=== PATIENT | male | born 1980 | race Caucasian/White ===

== ENCOUNTER 2018-04-06 15:57 | Outpatient (CLI) | payer OTHER, SELFPAY ==
[2018-04-06 16:47] LABS: Kit/Specimen SENT
== END 2018-04-06 16:17 ==
DX: R69 Illness, unspecified (principal)

== ENCOUNTER 2019-02-22 19:56 | Emergency (ER) | payer OTHER, SELFPAY ==
[2019-02-22 19:59] VITALS: BP 146/82; PULSE 75; RESP 18; TEMP 36.9; O2SAT 96
--- NOTE | 2019-02-22 20:29 | ED.GENADUL_ITS ---
Discharge Plan Disposition Patient Disposition: HOME Condition: Good Discharge Details Chief Complaint: Laceration Clinical Impression: Laceration of right little finger ED Provider: Morteza Padilla Discharge Instructions Instructions: Care For Your Stitches (ED), Finger Laceration (ED) Additional Instructions: Please leave the dressing on for 24 hours, then you may remove and begin cleaning the wound at least twice a day with soap and water. Continue to apply antibiotic ointment. Do not directly soak the area. Watch for any signs of infection and return if any increasing redness, swelling, pain, drainage. Please return in 7 to 10 days to have them removed. If you notice any worsening of your symptoms, or any new symptoms such as vomiting, diarrhea, fever, chills, shortness of breath, chest pain, numbness, weakness, or fainting , please return immediately to the emergency department for reevaluation. Please follow up with your primary care provider as soon as possible for reassessment and reevaluation. As always, it was a pleasure participating in your medical care today. Medical Decision Making This is a pleasant 38-year-old male who presents for laceration of his right dominant hand on the fifth finger on the dorsal aspect. 3 cm laceration. It occurred while cleaning knives after dinner. Exam demonstrates no evidence of neurovascular compromise or tendon disruption. Normal strength normal sensation normal capillary refill are all present. The finger was cleaned, irrigated, anesthetized. Patient tolerated procedure well. 4 simple interrupted sutures placed in the right dorsal aspect of the fifth digit on the dominant hand, 5-0 Ethilon was used. Small amount of Dermabond was then placed over the knots to prevent not unraveling. Discussed red flags which to return. Tetanus updated here. I have extensively reviewed the treatment plan and discharge instructions with the patient and their family. I have addressed all patient concerns at this time. The patient and family was made aware of what symptoms to monitor for that would warrant a return to the emergency department. Discussed the plan with the patient and family, they demonstrate verbal understanding and agreement with our assessment and plan at this time. HPI General Date/Time Provider Initiated Documentation: 02/22/19 20:05 . HPI Narrative: This is an remarkably pleasant 38-year-old male with no significant past medical history whose tetanus is not up-to-date who is right-hand dominant who presents today for laceration to the dorsal aspect of his right fifth digit. Patient was cleaning a knife 1 hour ago while doing dishes and it slipped and cut that area. Bleeding was controlled with pressure. No associated numbness or tingling. No other complaints at this time. No other modifying factors. Knife was otherwise clean. Patient denies any weakness. General Stated Complaint: Laceration SEGUNDO: 4 Review of Systems All systems reviewed & are unremarkable except as noted in HPI and below PFSH Social History Smoking/Tobacco Use Status: Never Alcohol Intake: current Alcohol Intake frequency: a few times a week Drug use: Never Substance use type: does not use Do you feel safe at home: Yes Do you feel safe in your relationship?: Yes Exam Narrative Exam Narrative: 1.Const: Well-nourished, Well-developed, appearing stated age 2.Eyes: PERRL, no conjunctival injection, and symmetrical lids. 3.ENT: Atraumatic external nose and ears. Moist MM. Neck: Symmetric, trachea midline, No thyromegaly. 4.CVS: +S1/S2, No murmurs or gallops. Peripheral pulses 2+ and equal in all extremities. Brisk capillary refill in all extremities. 5.RESP: Unlabored respiratory effort. Clear to auscultation bilaterally. No wheezes rales or rhonchi 6.GI: Soft, Nontender/Nondistended, No hepatosplenomegaly. No guarding or rebound. 7.MSK: Normocephalic/Atraumatic, Extremities w/o deformity or ttp No cyanosis or clubbing, Normal movement of all extremities. Right hand: Symmetrically palpable radial and ulnar pulses. Capillary refill less than 2 seconds to all digits. Intact sensation to light touch of the radial, median and ulnar nerves demonstrated by testing in the dorsal web space of the thumb, the distal palmar aspect of the index finger, and the lateral surface of the fifth finger. 2 point discrimination intact to 5mm (up to 6mm can be normal in digits 3-5) of discrimination in the affected digit. Intact motor function of the radial, median and ulnar nerves demonstrated by strength of extension of the isolated distal joint of the index finger, hand speedboat operator, and spreading of the 2nd through 5th digits. Fifth digit demonstrates notably normal flexion and extension with no evidence of tendon damage. Intact recurrent median nerve as demonstrated by ability to move thumb fully through opposition, abduction and flexion. No snuffbox tenderness. Fifth finger on the right hand demonstrates a linear laceration that is present at 45 degree angle on the dorsal aspect between the PIP and DIP joint. It is roughly 3 cm in length. Spreading of skin demonstrates no evidence of tendon damage, small amount of bloody oozing. Good capillary refill is present distally. Normal strength and movement. 8.Skin: Warm, Dry. No rashes. 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 Sensation grossly intact, no focal neurologic deficits. 10.Psych: (AAO) x3. Appropriate mood and affect Course Vital Signs Vital signs: Vital Signs Temperature 36.9 C 02/22/19 19:59 Pulse 75 02/22/19 19:59 Respiratory Rate 18 02/22/19 19:59 Blood Pressure 146/82 H 02/22/19 19:59 Pulse Oximetry 96 02/22/19 19:59 Temperature 36.9 C 02/22/19 19:59 Temperature Source Skin 02/22/19 19:59 Pulse 75 02/22/19 19:59 Respiratory Rate 18 02/22/19 19:59 Respiratory Effort Non-Labored 02/22/19 20:01 Blood Pressure 146/82 H 02/22/19 19:59 Blood Pressure Position Sitting 02/22/19 19:59 Pulse Oximetry 96 02/22/19 19:59 Oxygen Delivery Method Room Air 02/22/19 19:59 Oxygen Flow Rate 0 02/22/19 19:59 Pain Level 3 02/22/19 19:59 Procedures Laceration Laceration 1: Site: hand (Fifth digit on right hand) Side (If applicable): right Size (cm): 3 Description: linear Depth: simple, single layer Local Anesthetic: Lidocaine 1% Amount of anesthesia used (mL): 4 Pre-repair: wound explored, irrigated extensively and deep structures i ntact Skin layer closed with: nylon Size (cm): 5-0 Number of sutures: 4 Technique: simple, interrupted
== END 2019-02-22 20:40 | disposition home or self-care (01) ==
LOC: ER 20:42
PROVIDERS: Emergency Provider Student in an Organized Health Care Education/Training Program
DX: S61.216A Laceration without foreign body of right little finger without damage to nail, initial encounter (principal); W26.0XXA Contact with knife, initial encounter; Y93.G1 Activity, food preparation and clean up
CPT/HCPCS: 12002; 90471

== ENCOUNTER 2019-03-03 10:16 | Emergency (ER) | payer OTHER, SELFPAY ==
[2019-03-03 10:21] VITALS: BP 179/87; PULSE 76; RESP 18; TEMP 36.7; O2SAT 97
--- NOTE | 2019-03-03 10:27 | ED.GENADUL_ITS ---
Discharge Plan Disposition Patient Disposition: HOME Condition: Stable Discharge Details Chief Complaint: SutureRem Clinical Impression: Encounter for removal of sutures Primary Care Provider: None,None ED Provider: Joce Rajput Home Meds and New Rx's Prescriptions: No Action No Known Home Meds RF: 0 Discharge Instructions Additional Instructions: Continue daily soap and water cleanse, pat dry, replace Band-Aid. May resume normal routine and activities. Return for any acute concerns. Medical Decision Making 38-year-old male presents on day 8 following right fifth digit laceration repair with 4 interrupted nylon sutures. They were removed without difficulty. The wound is well-appearing. He was instructed on home care. He is stable for discharge. HPI General Mode of arrival: ambulatory . Date/Time Provider Initiated Documentation: 03/03/19 10:16 . Limitations to Documentation: no limitations . Information obtained by: patient . History of Present Illness 38 year old M presents to the emergency department with the chief complaint of Right fifth digit encounter for suture removal no other complaints, Related Data Home Medications Medication Instructions Recorded Confirmed Unknown [No Known Home Meds] 03/03/19 03/03/19 Allergies Allergy/AdvReac Type Severity Reaction Status Date / Time No Known Allergies Allergy Unverified 03/03/19 10:27 General Stated Complaint: SutureRem SEGUNDO: 4 PFSH Social History Smoking/Tobacco Use Status: Never Alcohol Intake: current Alcohol Intake frequency: a few times a week Drug use: Never Substance use type: does not use Do you feel safe at home: Yes Do you feel safe in your relationship?: Yes Exam Narrative Exam Narrative: The right fifth digit on the dorsal surface has distal healing laceration with 4 sutures that were removed, no dehiscence, no erythema or discharge. Course Vital Signs Vital signs: Vital Signs Temperature 36.7 C 03/03/19 10:21 Pulse 76 03/03/19 10:21 Respiratory Rate 18 03/03/19 10:21 Blood Pressure 179/87 H 03/03/19 10:21 Pulse Oximetry 97 03/03/19 10:21 Temperature 36.7 C 03/03/19 10:21 Temperature Source Skin 03/03/19 10:21 Pulse 76 03/03/19 10:21 Respiratory Rate 18 03/03/19 10:21 Respiratory Effort Non-Labored 03/03/19 10:22 Blood Pressure 179/87 H 03/03/19 10:21 Blood Pressure Position Sitting 03/03/19 10:21 Pulse Oximetry 97 03/03/19 10:21 Oxygen Delivery Method Room Air 03/03/19 10:21 Oxygen Flow Rate 0 03/03/19 10:21
== END 2019-03-03 10:33 | disposition home or self-care (01) ==
PROVIDERS: Emergency Provider Emergency Medicine
DX: S61.216D Laceration without foreign body of right little finger without damage to nail, subsequent encounter (principal); W26.0XXD Contact with knife, subsequent encounter; Z48.02 Encounter for removal of sutures

== ENCOUNTER 2020-07-12 02:17 | Outpatient (CLI) | payer OTHER, SELFPAY ==
[2020-07-12 08:58] LABS: HCT 44.8 % (40.0-50.0); HGB 15.3 g/dL (13.5-17.5); MCH 30.2 pg (27.0-33.0); MCHC 34.2 % (32.0-36.0); MCV 88.4 fL (80-95); MPV 9.5 fL (8.0-11.0); Platelet Count 247 10^3/uL (130-400); RBC 5.07 10^6/uL (4.36-5.78); RDW 11.6 % (11.8-14.1); RDW-SD 36.9 fL; WBC 7.52 10^3/uL (4.4-10.8)
[2020-07-12 09:42] LABS: ALT 53 U/L (16-63); AST 21 U/L (15-37); Alkaline Phosphatase 85 U/L (46-116); Anion Gap 10.1 mmol/L (3-11); BUN 13 mg/dL (7-18); Bilirubin, Total 0.8 mg/dL (0.2-1.0); CO2 26.9 mmol/L (21.0-32.0); CREATININE 0.7 mg/dL (0.70-1.30); Calculated LDL 140 mg/dL (<100); Chloride 104 mmol/L (98-107); Cholesterol 226 mg/dL (<200); Glucose 108 mg/dL (74-106); HDL Cholesterol 49 mg/dL (40-60); Potassium 4.7 mmol/L (3.5-5.1); Sodium 141 mmol/L (136-145); TSH (W/Ref FT4) 0.88 uIU/mL (0.36-3.74); Total Protein 7.5 g/dL (6.4-8.2); Triglyceride 187 mg/dL (<150)
== END 2020-07-12 02:18 | disposition home or self-care (01) ==
LOC: LBO 02:17
PROVIDERS: PCP Student in an Organized Health Care Education/Training Program; Visit Provider Student in an Organized Health Care Education/Training Program
DX: I10 Essential (primary) hypertension (principal); E86.0 Dehydration; Z13.220 Encounter for screening for lipoid disorders; R53.83 Other fatigue; Z80.6 Family history of leukemia; Z82.49 Family history of ischemic heart disease and other diseases of the circulatory system
CPT/HCPCS: 36415; 80053; 80061; 85027; 84443

== ENCOUNTER 2023-02-21 00:22 | Outpatient (CLI) | payer OTHER, SELFPAY | END 2023-02-21 00:23 | disposition home or self-care (01) | LOC: DI.KIM 00:25 | PROVIDERS: PCP Student in an Organized Health Care Education/Training Program; Visit Provider Student in an Organized Health Care Education/Training Program | DX: Z82.49 Family history of ischemic heart disease and other diseases of the circulatory system (principal); I10 Essential (primary) hypertension | CPT/HCPCS: 93010 ==

== ENCOUNTER 2023-03-11 04:01 | Outpatient (CLI) | payer OTHER, SELFPAY ==
[2023-03-11 07:41] LABS: Abs Immature Grans 0.02 10^3/uL (0.0-0.06); Absolute Basophil Count 0.07 10^3/uL (0.0-0.2); Absolute Eosinophil Count 0.17 10^3/uL (0.0-0.7); Absolute Lymphocyte Count 2.06 10^3/uL (1.2-3.4); Eosinophils % 2.4; HCT 45.1 % (40.0-50.0); HGB 16.2 g/dL (13.5-17.5); Immature Grans % 0.3; Lymphocytes % 29.3; MCH 31.3 pg (27.0-33.0); MCHC 35.9 % (32.0-36.0); MCV 87 fL (80-95); MPV 9.2 fL (8.0-11.0); Monocytes % 7.1; Neutrophils % 59.9; Platelet Count 239 10^3/uL (130-400); RBC 5.18 10^6/uL (4.36-5.78); RDW 11.5 % (11.8-14.1); RDW-SD 36.8 fL; WBC 7.02 10^3/uL (4.4-10.8)
[2023-03-11 07:57] LABS: ALT 49 U/L (16-63); AST 19 U/L (15-37); Albumin 3.6 g/dL (3.4-5.0); Alkaline Phosphatase 93 U/L (46-116); Anion Gap 8.2 mmol/L (3-11); BUN 12 mg/dL (7-18); Bilirubin, Total 0.8 mg/dL (0.2-1.0); CO2 26.8 mmol/L (21.0-32.0); CREATININE 0.9 mg/dL (0.70-1.30); Calcium 8.8 mg/dL (8.5-10.1); Calculated LDL 146 mg/dL (<100); Chloride 104 mmol/L (98-107); Cholesterol 217 mg/dL (<200); Estimated GFR 108.68 (mL/min/1.73m2); Glucose 112 mg/dL (74-106); HDL Cholesterol 51 mg/dL (40-60); Potassium 3.8 mmol/L (3.5-5.1); Sodium 139 mmol/L (136-145); Total Protein 7.5 g/dL (6.4-8.2); Triglyceride 102 mg/dL (<150)
[2023-03-11 08:18] LABS: Vitamin D 25 Total 7.9 ng/mL (30-100)
== END 2023-03-11 04:02 | disposition home or self-care (01) ==
LOC: LBO 04:01
PROVIDERS: PCP Student in an Organized Health Care Education/Training Program; Referring Provider Student in an Organized Health Care Education/Training Program; Visit Provider Student in an Organized Health Care Education/Training Program
DX: K52.89 Other specified noninfective gastroenteritis and colitis (principal); K62.5 Hemorrhage of anus and rectum; R03.0 Elevated blood-pressure reading, without diagnosis of hypertension; Z52.001 Unspecified donor, stem cells; Z87.19 Personal history of other diseases of the digestive system; Z80.6 Family history of leukemia; Z13.220 Encounter for screening for lipoid disorders; Z82.49 Family history of ischemic heart disease and other diseases of the circulatory system
CPT/HCPCS: 36415; 80053; 80061; 82306; 85025

== ENCOUNTER 2023-04-01 15:57 | Outpatient (CLI) | payer OTHER, SELFPAY ==
--- NOTE | 2023-04-01 15:45 | RT.EKG_ITS ---
APPROVED REPORT Exam: Resting ECG Reason for Exam: Uncontrolled blood pressure Patient Location: O HR:65 bpm ECG Measurements Heart Rate 65 AXIS NE 164 P 9 QRSd 91 QRS 15 QT 370 T 198 QTc 385 Conclusion Sinus rhythm...normal P axis, V-rate 50- 99 Left ventricular hypertrophy with repolarization abnormality
== END 2023-04-01 15:58 | disposition home or self-care (01) ==
LOC: DI.KIM 16:03
PROVIDERS: PCP Student in an Organized Health Care Education/Training Program; Visit Provider Student in an Organized Health Care Education/Training Program
DX: Z87.19 Personal history of other diseases of the digestive system; I10 Essential (primary) hypertension
CPT/HCPCS: 93010

== ENCOUNTER → 2023-04-02 01:23 | Outpatient (CLI) | payer OTHER, SELFPAY ==
--- NOTE | 2023-04-02 14:31 | DI.US_ITS ---
APPROVED REPORT EXAM: Comprehensive 2D, Doppler, and color-flow Echocardiogram Patient Location: Out-Patient Truck Dock Material Mover: Maricarmen Waggoner RDCS (AE) Indications: Evaluate EF, Uncontrolled HTN Other Information Study Quality: Fair. Technically limited study due to body habitus. Conclusion Moderate concentric left ventricular hypertrophy. Ejection fraction is percent. Wall motion is norm al Normal right ventricular size and systolic function Both atria are normal in size There is no structural or hemodynamically significant valvular disease Wall motion Left Ventricle The left ventricle is normal size. The left ventricular systolic function is normal. The left ventric ular ejection fraction is within the normal range. Moderate concentric left ventricular hypertrophy. There is normal LV segmental wall motion. There is no ventricular septal defect visualized. LVEF is 6 0%. Right Ventricle The right ventricle is normal size. The right ventricular systolic function is normal. Atria The left atrium size is normal. The right atrium size is normal. The interatrial septum is intact wit h no evidence for an atrial septal defect. Aortic Valve The aortic valve is normal in structure. Aortic valve is trileaflet. There is no aortic valvular sten osis. No aortic regurgitation is present. Mitral Valve The mitral valve is normal in structure. No evidence of mitral valve stenosis. Trace mitral regurgita tion. Tricuspid Valve The tricuspid valve is normal in structure. There is no tricuspid valve stenosis. Trace tricuspid reg urgitation. Unable to assess PA pressure. Pulmonic Valve The pulmonary valve is normal in structure. There is no pulmonic valvular stenosis. There is no pulmo alfredo valvular regurgitation. Great Vessels The aortic root is normal in size. The ascending aorta is normal in size. Aortic arch is normal in ca liber. IVC is normal in size and collapses >50% with inspiration. Pericardium There is no pericardial effusion. 2D Dimensions IVSD d PLAX 1.53 cm M: 0.6-1.2 Ao Root d 3.05 cm M: 3.1 - 3.7 LVPW d PLAX 1.50 cm M: 0.6 - 1.2 Ao Asc Diam d 2.81 cm M: 2.6 - 3.4 LVID d PLAX 4.62 cm M: 4.2 - 5.8 LVDs 3.35 cm M: 2.5 - 4.0 LV EF Teichholz 53.4 % FS 27.45 % LV EDV (Teich) 98.3 mL LV ESV (Teich) 45.8 mL M-Mode TAPSE 2.04 cm (M/F) >1.7 Auto EF LV EDV A4C 72.0 mL LV EDV A2C 108.1 mL LV EDV BP 88.3 mL LV ESV A4C 37.4 mL LV ESV A2C 55.6 mL LV ESV BP 46.4 mL LVEF(%) A4C 48.0 % LVEF(%) A2C 48.6 % LVEF(%) BP 47.4 % LV SV A4C 34.5 ml LV SV A2C 52.5 ml LV SV BP 41.9 ml LV CO A4C 3.0 L/min LV CO A2C 4.4 L/min LV CO BP 3.7 L/min HR A4C 87.38 BPM HR A2C 84.32 BPM LV EDV Index (BP) LV Strain Long Pk Overal Avg (s) 13.53 LA Volume LA Length A4C 4.1 cm LA Length A2C 4.4 cm LA Area A4C s 10.34 cm2 LA Area A2C s 13.77 cm2 LA Vol A4C A-L 22.36 mL LA Vol A2C A-L 37.00 mL LA Vol Biplane A-L 29.8 mL LA Vol/BSA A4C A-L LA Vol/BSA A2C A-L LA Vol/BSA BP A-L 14.5 mL/m2 LA Vol A4C MOD 21.0 mL LA Vol A2C MOD 34.5 mL LA Vol BP MOD 27.7 mL RA Volume RA Area A4C 8.8 cm2 RA ESV A4C (A-L) 16.7mL RA Vol/BSA A4C A-L RA Length A4C 3.9 cm RA ESV A4C (MOD) 15.4mL LV Diastology MV E' medial 0.092 (>0.07 m/s) MV E Vmax 0.57 (0.4-1.3 m/s) MV E/E' MED 6.15 (<14) MV A Vmax 0.60 (0.4-1.3 m/s) MV E' lateral 0.102 (>0.1 m/s) E/A Ratio 0.9 MV E/E' LAT 5.56 (<14) MV E' Average 0.097 m/s MV E/E'(average) 5.84 Aortic Valve AoV Vmax 1.28 m/s LVOT Vmax 1.16 m/s AoV Peak Grad 6.6 mmHg LVOT Peak Grad 5.4 mmHg AoV Area (Vmax) 2.83 cm2 LVOT VTI 0.219 m AoV VTI 0.191 m LVOT Mean Grad 3.1 mmHg AoV Mean Lonnie. 0.87 m/s LVOT SV 68.16 mL AoV Mean Grad 3.5 mmHg LVOT Diam s 1.95 cm AoV Area (VTI) 3.56 cm2 Velocity Ratio 0.91 Mitral Valve MV DT 221 (160-240 msec) MV Vmax TIPS 0.99 m/s MV Mean Grad 1.6 (<2mmHg) MV VTI 0.230 m Pulmonary Valve PV Vmax 1.23 (0.5-1.5 m/s) RVOT Vmax 1.03 m/s PV Peak Grad 6.0 mmHg RVOT Peak Gr. 4.3 mmHg PV Mean Lonnie 0.86 m/s RVOT VTI 0.172 m PV Mean Grad 3.5 mmHg RVOT Mean Gr. 2.7 mmHg Tricuspid Valve RA Pressure 3.00 mmHg TV S' 0.17 m/s
== END ==
PROVIDERS: PCP Student in an Organized Health Care Education/Training Program; Visit Provider Student in an Organized Health Care Education/Training Program
DX: R03.0 Elevated blood-pressure reading, without diagnosis of hypertension (principal); I10 Essential (primary) hypertension
CPT/HCPCS: 93306

== ENCOUNTER → 2023-06-10 00:57 | Outpatient (CLI) | payer OTHER, SELFPAY ==
--- NOTE | 2023-06-10 06:15 | ETT_ITS ---
APPROVED REPORT Exam: Exercise Treadmill Patient Location: Out-Patient Room/Bed: Stress Nurse: Cassidy Smart RN Ordering Provider:DION BARRAZA, Contact Number: [phone] BMI: 32.27 Baseline Rhythm: Sinus Rhythm Comment: Diffuse T wave abnormalities Indications: Family h/o HTN, uncontrolled HTN, abnormal EKG Medical History Medical History: HTN, abnormal EKG, Family hx Cardiac Medications: Lisinopril Allergies: NKA Cardiac Risk Factors: Family hx, HTN Previous Cardiac Procedures: None Pretest Chest Pain Characteristics: None Exercise History: Physically active Physical Disabilities: None Lung Sounds: Clear to auscultation Heart Sounds: Regular Stress Test Details Test: Exercise stress testing was performed using a Sony protocol. Rest Stress HR Resting HR Supine: 73 bpm Max Heart Rate (APMHR): 176 bpm Resting HR Standin bpm Target HR (85% APMHR): 150 bpm Max HR Achieved: 156 bpm % of APMHR: 89 Recovery HR: 83 bpm HR response to stress: Normal HR response to stress BP Resting BP Supine: 160/92 mmHg Resting BP Standin/98 mmHg Max BP: 240/80 mmHg Recovery BP: 172/78 mmHg BP response to stress: Abnormal hypertensive response to stress. ECG Resting ECG: Sinus Rhythm, Diffuse T wave abnormalities Ectopy: None Stress ECG: Sinus Tachycardia ST Change: Downsloping ST depression, Horizontal ST depression Lead(s): Inferior Maximum ST Deviation: 1-2 mm Arrhythmia: Occasional PVC's Recovery ECG: Sinus Rhythm Recovery ST Change: Diffuse T wave abnormalities Recovery Arrhythmia: None Clinical Reason for Termination: Target HR Achieved, Fatigue, Mod SOB Stress Symptoms: General Fatigue, SOB Exercise duration: 09 min59 sec Highest Stage Reached: Stage 4: 4.2 mph at 16% grade. Exercise capacity: 11.77 METs Angina Score: None Christensen Treadmill Score: 6.0 Rate Pressure Product: 41487 Stress ECG Conclusion 1. Resting electrocardiogram showed left ventricular hypertrophy with repolarization abnormalities 2. Patient exercised on the Sony protocol and completed workload of 11.77 METS 3. Hypertensive blood pressure response to exercise. Normal heart rate response to exercise. Patien t achieved 89% of predicted heart rate for age 4. At peak exercise there were more prominent repolarization abnormalities noted 5. There were no dysrhythmias 6. Suggest repeat with imaging if clinically indicated Christensen Treadmill Score is 6.0 which is Low risk. Stress Test Summary STAGE Time (mins) Speed (mph) Grade (%) HR BP SpO2 SYMPTOMS METS Supine 73 160/92 Standing 82 164/98 1 3 1.7 10 107 180/80 4.5 2 6 2.5 12 121 7 3 9 3.4 14 141 10 4 12 4.2 16 156 Mod SOB 13 1 min recovery 156 192/92 3 min recovery 122 240/80 6 min recovery 89 218/84 9 min recovery 84 186/88 12 min recovery 83 172/78 All symptoms resolved
== END ==
PROVIDERS: PCP Student in an Organized Health Care Education/Training Program; Visit Provider Student in an Organized Health Care Education/Training Program
DX: Z82.49 Family history of ischemic heart disease and other diseases of the circulatory system (principal); I10 Essential (primary) hypertension; R94.31 Abnormal electrocardiogram [ECG] [EKG]
CPT/HCPCS: 93017

== ENCOUNTER 2023-09-03 01:15 | Outpatient (CLI) | payer OTHER, SELFPAY ==
[2023-09-03 07:36] LABS: Hemoglobin A1C 5.5 % (<5.7)
[2023-09-03 08:07] LABS: Anion Gap 5.9 mmol/L (3-11); BUN 10 mg/dL (7-18); CO2 30.1 mmol/L (21.0-32.0); CREATININE 0.9 mg/dL (0.70-1.30); Calcium 9.1 mg/dL (8.5-10.1); Calculated LDL 109 mg/dL (<100); Chloride 103 mmol/L (98-107); Cholesterol 187 mg/dL (<200); Estimated GFR 108.01 (mL/min/1.73m2); Glucose 124 mg/dL (74-106); HDL Cholesterol 50 mg/dL (40-60); Potassium 3.6 mmol/L (3.5-5.1); Sodium 139 mmol/L (136-145); Triglyceride 141 mg/dL (<150); Vitamin D 25 Total 18.9 ng/mL (30-100)
== END 2023-09-03 01:16 | disposition home or self-care (01) ==
LOC: LBO 01:15
PROVIDERS: PCP Student in an Organized Health Care Education/Training Program; Referring Provider Student in an Organized Health Care Education/Training Program; Visit Provider Student in an Organized Health Care Education/Training Program
DX: R73.09 Other abnormal glucose (principal); K90.9 Intestinal malabsorption, unspecified; E55.9 Vitamin D deficiency, unspecified; I10 Essential (primary) hypertension; Z13.220 Encounter for screening for lipoid disorders
CPT/HCPCS: 36415; 80048; 80061; 82306; 83036

== ENCOUNTER 2023-12-03 02:03 | Outpatient (CLI) | payer OTHER, SELFPAY ==
[2023-12-03 07:58] LABS: Anion Gap 11.5 mmol/L (3-11); BUN 12 mg/dL (7-18); CO2 28.5 mmol/L (21.0-32.0); Calcium 9.5 mg/dL (8.5-10.1); Chloride 105 mmol/L (98-107); Estimated GFR 95.18 (mL/min/1.73m2); Glucose 144 mg/dL (74-106); Potassium 4.1 mmol/L (3.5-5.1); Sodium 145 mmol/L (136-145)
== END 2023-12-03 02:04 | disposition home or self-care (01) ==
LOC: LBO 02:03
PROVIDERS: PCP Student in an Organized Health Care Education/Training Program; Referring Provider Student in an Organized Health Care Education/Training Program; Visit Provider Student in an Organized Health Care Education/Training Program
DX: Z91.89 Other specified personal risk factors, not elsewhere classified (principal)
CPT/HCPCS: 36415; 80048

== ENCOUNTER 2024-03-31 00:38 | Outpatient (CLI) | payer OTHER, SELFPAY ==
[2024-03-31 08:14] LABS: Vitamin D 25 Total 16.2 ng/mL (30-100)
== END 2024-03-31 00:39 | disposition home or self-care (01) ==
PROVIDERS: PCP Nurse Practitioner Family; Visit Provider Student in an Organized Health Care Education/Training Program
DX: K90.9 Intestinal malabsorption, unspecified (principal)
CPT/HCPCS: 36415; 82306

== ENCOUNTER 2024-06-02 06:54 | Day surgery (SDC) | payer OTHER, SELFPAY ==
[2024-06-02 07:07] VITALS: BP 145/94; PULSE 74; RESP 16; TEMP 36.4; O2SAT 97
[2024-06-02] MEDS: Lactated Ringers 1,000 ML 80 ML IV (07:25)
--- NOTE | 2024-06-02 07:33 | W.ANESPRE ---
General Info Date of Service Date Performed: 06/02/24 Height: 5 ft 6 in Weight: 91.8 kg Body Mass Index (BMI): 32.6 Surgical Procedure: Operation Date: 06/02/24 08:20 Proposed Procedure Side Surgeon p Oscar Bragg MD Meds Allergies and Home Medications Allergies Allergy/AdvReac Type Severity Reaction Status Date / Time No Known Allergies Allergy Verified 06/02/24 07:15 Home Medication ?Medication ?Instructions ?Recorded cholecalciferol (vitamin D3) 25 25 mcg PO DAILY #90 caps 03/15/24 mcg (1,000 unit) capsule losartan 25 mg tablet 25 mg PO DAILY #90 tabs 03/15/24 bisacodyl 5 mg tablet,delayed 5 mg PO ONCE #4 tabs 05/11/24 release (Dulcolax (bisacodyl)) polyethylene glycol 3350 17 17 g PO ONCE #238 grams 05/11/24 gram/dose oral powder Current Visit Medications: Current Medications Generic Name Dose Route Start Last Admin Trade Name Freq PRN Reason Stop Dose Admin Ringer's Solution 1,000 mls @ 80 mls/hr 06/02/24 06:00 06/02/24 07:25 IV 06/02/24 23:59 80 mls/hr INFUSION AIDE Administration IV Miscellaneous Supplies 1 each 06/02/24 06:00 Iv Access IV 06/02/24 23:59 DIRECTED AIDE Sodium Chloride 0 ml 06/02/24 06:00 Normal Saline Flush 10 Ml Syr IV 06/02/24 23:59 PRN PRN Sodium Chloride 0 ml 06/02/24 06:00 Normal Saline 10 Ml Vial IJ 06/02/24 23:59 DIRECTED PRN Sterile Water 0 ml 06/02/24 06:00 Water,Injection,Sterile 10 Ml Vial IJ 06/02/24 23:59 DIRECTED PRN PFSH Active Problems Active Problems: Problem Status Onset Code Preventative health care Acute Z00.00 Family history of prostate cancer Acute Z80.42 Hypertension Chronic I10 Hypovitaminosis D Acute E55.9 Abnormal electrocardiogram [ECG] [EKG] Acute R94.31 Anxiety about health Acute R45.89 Uncontrolled hypertension Acute I10 Family hx of hypertension Chronic Z82.49 Family history of leukemia Chronic Z80.6 Medical History Medical History 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, 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) Elevated blood pressure reading Right sided colitis with rectal bleeding Tobacco Smoking/Tobacco Use Status: Never Passive smoking exposure: No Alcohol Alcohol Intake: current Alcohol intake frequency: a few times a week Alcohol type: beer Substance Use Substance use: Never Substance use type: does not use Vital Signs and Lab Results Vital Signs Most Recent Vital Signs in EMR: Most Recent Vital Signs Temp Pulse Resp BP Pulse Ox 36.4 C L 74 16 145/94 H 97 06/02/24 07:07 06/02/24 07:07 06/02/24 07:07 06/02/24 07:07 06/02/24 07:07 Lab Results Blood Type / Crossmatch: No Data to Display Complete Blood Count: No Data to Display Complete Metabolic Panel: No Data to Display Liver Function Panel: No Data to Display Coagulation Panel: No Data to Display Cardiac Panel: No Data to Display Arterial Blood Gas: No Data to Display Venous Blood Gas: No Data to Display Pancreas Panel: No Data to Display Thyroid Panel: No Data to Display Infectious Disease: No Data to Display Blood Cultures: No Data to Display Toxicology Panel: No Data to Display Imaging and Studies Imaging and Studies Study information below may be from another EMR and interpreted by another provider. Please see original notes in EMR for more complete details. EKG Summary: 04/01/23 Conclusion Sinus rhythm...normal P axis, V-rate 50- 99 Left ventricular hypertrophy with repolarization abnormality Stress Test Summary: 06/10/23 Stress ECG Conclusion 1. Resting electrocardiogram showed left ventricular hypertrophy with repolarization abnormalities 2. Patient exercised on the Sony protocol and completed workload of 11.77 METS 3. Hypertensive blood pressure response to exercise. Normal heart rate response to exercise. Patient achieved 89% of predicted heart rate for age 4. At peak exercise there were more prominent repolarization abnormalities noted 5. There were no dysrhythmias 6. Suggest repeat with imaging if clinically indicated Christensen Treadmill Score is 6.0 which is Low risk. Echocardiogram Summary: 04/02/23 Conclusion Moderate concentric left ventricular hypertrophy. Ejection fraction is percent. Wall motion is normal Normal right ventricular size and systolic function Both atria are normal in size There is no structural or hemodynamically significant valvular disease Carotid Artery Summary:: 02/24/23 IMPRESSION: No evidence for hemodynamically significant carotid stenosis. Anesthesia Assessment and Plan Anesthesia History Personal History: No History of Anesthesia Complications Family History: No Family History of Anesthesia Complications Exercise Tolerance Exercise Tolerance: Metabolic Equivalents>4 Pertinent Negatives Pertinent Negatives: No Symptoms of GERD, No Major Cardiovascular Symptoms or Complaints, No Major Pulmonary Symptoms or Complaints and No History of CVA/TIA Cardiac & Pulmonary Exam Cardiac Exam: Normal S1/S2 Heart Sounds Pulmonary Exam: Clear Bilateral Breath Sounds Implantable Cardiac Device Does patient have a Pacemaker or an ICD?: No Airway Exam Known Difficult Airway: No Mallampati Class: 2 Mouth Opening: Normal (> 3cm) Thyromental Distance: Greater than 3 cm Facial Hair: Full Neal Neck Range of Motion: Full ROM Neck Circumference: Normal Teeth Condition: Normal Dentition ASA Classification ASA Score: ASA 2 Emergency Case?: No NPO Status NPO Status: NPO Clears >2 hours, Solids >8 hours Anesthesia Plan Resuscitation Status: Full Code Anesthesia Technique: General Anesthesia Airway Planned: Natural Airway Monitors Used: Standard Monitors
[2024-06-02 07:58] VITALS: BMI 32.6
--- NOTE | 2024-06-02 08:03 | W.COLOREPORT ---
Date of service: 06/02/24 Time of Service: 08:03 Colonoscopy Report Procedure Description: PROCEDURES PERFORMED: 1. Colonoscopy with cold forceps polypectomy PREOPERATIVE DIAGNOSIS: Screening colonoscopy POSTOPERATIVE DIAGNOSIS: Colon polyps SURGEON: Manjinder Bragg MD INDICATION FOR PROCEDURE: The patient is a 44-year-old man who has never had a colonoscopy before. He has no symptoms. No family history of colon cancer. FINDINGS: Normal terminal ileum. In the transverse colon a 2-3 mm sessile polyp was removed with cold forceps technique. In the sigmoid colon another 2-3 mm sessile polyp was removed with cold forceps technique. No diverticular disease. No hemorrhoid disease. SURVEILLANCE interval/FOLLOW-UP: Pending path results -if sessile serrated or villous histology then 3 years. Otherwise 7 to 10 years. SPECIMENS: Yes EBL: Minimal COMPLICATIONS: None QUALITY of prep: Excellent Procedure in detail: The patient gave written consent and was in agreement with the indications, the potential risks as well as the benefits of the procedure. They were taken to the endoscopy suite and laid in the left lateral decubitus position. A timeout was performed and anesthesia was administered which was tolerated well. I started the procedure. Digital rectal and visual examination was performed and grossly within normal limits. A well-lubricated flexible colonoscope was then introduced and passed without any notable difficulty all the way to the cecum identified by the ileocecal valve and the appendiceal orifice. The terminal ileum was intubated and looked normal. The scope was then slowly withdrawn with the above-noted findings. The patient tolerated the procedure well and was taken to the PACU in hemodynamically stable condition.
--- NOTE | 2024-06-02 08:03 | W.PM.DSUDISC ---
Date of service: 06/02/24 Discharge Plan Disposition Patient Disposition: Home Condition: Good Discharge Details Attending Provider: Tremaine Bragg Primary Care Provider: Angeles Stevenson Home Meds and New Rx's Prescriptions: No Action cholecalciferol (vitamin D3) 25 mcg (1,000 unit) capsule 25 mcg PO DAILY Qty: 90 3RF losartan 25 mg tablet 25 mg PO DAILY Qty: 90 3RF bisacodyl [Dulcolax (bisacodyl)] 5 mg tablet,delayed release (DR/EC) 5 mg PO ONCE Qty: 4 0RF Rx Instructions: Take per colonoscopy instructions provided by ordering providers office polyethylene glycol 3350 17 gram/dose powder 17 g PO ONCE Qty: 238 0RF Rx Instructions: Take per colonoscopy instructions provided by ordering providers office Discharge Instructions Additional Instructions: FINDINGS: Some small polyps were found and removed today. They are nothing to worry about. This is why we do the colonoscopies. Depending on the type of polyps they are, you may need to have another colonoscopy and is soon as 3 years. If they are the common or usual ones then you can have another colonoscopy in 7 to 10 years. We will call you and let you know once the results are back. Stand Alone Forms: Anesthesia Discharge Inst., Colonoscopy Post Instructions, Modesta Peres (DSU) Activity:: Activity as Tolerated Diet:: As Tolerated Discharge Orders Discharge Orders: Discharge Order (Routine); Ordered 06/02/24 Ordered By: Tremaine Bragg
--- NOTE | 2024-06-02 08:25 | BOWEL_PTH ---
PATIENT: Jacky Plaza LOC: [facility] U#:[id number] AGE/SX: 44/M ROOM: RE06/02/[address]: Tremaine Bragg : 1980 BED: DIS: 06/02/2024 SPEC #: [id number] RECD: 06/02/24 12:47 STATUS: PHYLLIS REQ #: [id number] LOR: 06/02/24 08:[address]: Tremaine Bragg DEPT: Surgical Specimen RECD BY: Elida Gimenez ENTERED: 06/02/24 12:48 SP TYPE: Bowel OTHR DR: Angeles Stevenson APRN Tissues: 1 - BIOPSY BOWEL 2 - BIOPSY BOWEL Procedures: GROSS AND MICRO LEVEL 4 Comments: [id number]
[2024-06-02 08:35] VITALS: BP 142/92; PULSE 74; RESP 16; TEMP 35.9; O2SAT 96
[2024-06-02 09:04] VITALS: BP 158/106; PULSE 67; RESP 16; TEMP 36; O2SAT 97
--- NOTE | 2024-06-02 09:35 | W.ANESPOSTOP ---
Postoperative Evaluation Date, Time and Location Date Performed: 06/02/24 Time Performed: 09:04 Patient Location: Day Surgery Unit Vital Signs Most Recent Imported Vital Signs: Most Recent Vital Signs Temp Pulse Resp BP Pulse Ox 36.0 C L 67 16 158/106 H 97 06/02/24 09:04 06/02/24 09:04 06/02/24 09:04 06/02/24 09:04 06/02/24 09:04 Pain Score Most Recent Pain Score: Most Recent Pain Score Pain Level 0 06/02/24 09:04 Assessment Mental Status: Awake (Alert & Oriented to Patient Baseline) Airway and Respiratory Function: Patent airway with normal (patient baseline) respiratory exam Cardiovascular Function: Hemodynamically Stable Hydration Status: Adequately Hydrated Nausea & Vomiting: No Nausea or Vomiting Pain: Pt. Denies Any Pain Peripheral Nerve Block: Patient did not receive a nerve block
== END 2024-06-02 09:10 | disposition home or self-care (01) ==
PROVIDERS: PCP Nurse Practitioner Family; Visit Provider Student in an Organized Health Care Education/Training Program
PROC: 0DJD8ZZ Inspection of Lower Intestinal Tract, Via Natural or Artificial Opening Endoscopic (ICD-10-PCS; CPT 45378; principal; 2024-06-02 08:15)
DX: Z12.11 Encounter for screening for malignant neoplasm of colon (principal); K63.5 Polyp of colon
CPT/HCPCS: 45380; 88305; J2003; J2704

== ENCOUNTER 2024-08-15 03:43 | Outpatient (CLI) | payer OTHER, SELFPAY ==
[2024-08-15 22:50] LABS: PSA, Screening 0.4 ng/mL (<=2.5)
== END 2024-08-15 03:44 | disposition home or self-care (01) ==
PROVIDERS: PCP Nurse Practitioner Family; Visit Provider Nurse Practitioner Family
DX: Z80.42 Family history of malignant neoplasm of prostate (principal)
CPT/HCPCS: 36415; 84153

== ENCOUNTER 2024-09-08 00:56 | Outpatient (CLI) | payer OTHER, SELFPAY ==
[2024-09-08 16:42] LABS: Anion Gap 9.3 mmol/L (3-11); BUN 15 mg/dL (7-18); CO2 28.7 mmol/L (21.0-32.0); Calcium 9.5 mg/dL (8.5-10.1); Calculated LDL 100 mg/dL (<100); Chloride 104 mmol/L (98-107); Cholesterol 204 mg/dL (<200); Estimated GFR 107.33 (mL/min/1.73m2); Glucose 80 mg/dL (74-106); HDL Cholesterol 57 mg/dL (>or=40); Potassium 3.9 mmol/L (3.5-5.1); Sodium 142 mmol/L (136-145); Triglyceride 237 mg/dL (<150)
== END 2024-09-08 00:57 | disposition home or self-care (01) ==
LOC: LBO 00:56
PROVIDERS: PCP Nurse Practitioner Family; Visit Provider Nurse Practitioner Family
DX: I10 Essential (primary) hypertension (principal); Z00.00 Encounter for general adult medical examination without abnormal findings
CPT/HCPCS: 36415; 80048; 80061; 82947

== ENCOUNTER 2024-11-16 00:33 | Outpatient (CLI) | payer OTHER, SELFPAY ==
--- NOTE | 2024-12-06 13:03 | W.NUTRFU ---
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 are always available. He has already started making changes but we reviewed supportive tips like making sure eating more grains than grain products and choosing grain products 3g of fiber or more. increase in non starchy veggies is another goal and lower added sugar intake. He is working on activity. He will work on reducing added sugars and saturated fats and also educated on sodium in prepared foods and ways to decrease intake. Time Spent in Nutritional Counseling and Treatment: 25 min
== END 2024-11-16 00:34 | disposition home or self-care (01) ==
LOC: DS 00:33
PROVIDERS: PCP Nurse Practitioner Family; Visit Provider Dietitian, Registered
DX: I10 Essential (primary) hypertension (principal)
CPT/HCPCS: 00123; 97802

== ENCOUNTER 2024-11-24 02:59 | Outpatient (CLI) | payer OTHER, SELFPAY ==
[2024-11-24 08:01] LABS: Anion Gap 8.8 mmol/L (3-11); BUN 13 mg/dL (7-18); CO2 30.2 mmol/L (21.0-32.0); Calcium 9.2 mg/dL (8.5-10.1); Chloride 104 mmol/L (98-107); Estimated GFR 115.80 (mL/min/1.73m2); Glucose 104 mg/dL (74-106); Potassium 4.0 mmol/L (3.5-5.1); Sodium 143 mmol/L (136-145)
== END 2024-11-24 03:00 | disposition home or self-care (01) ==
LOC: LBO 02:59
PROVIDERS: Absent Provider Nurse Practitioner Family; PCP Nurse Practitioner Family; Referring Provider Nurse Practitioner Family; Visit Provider Nurse Practitioner Family
DX: I10 Essential (primary) hypertension (principal)
CPT/HCPCS: 36415; 80048